=== PATIENT | male | born 1940 | race Caucasian/White ===

== ENCOUNTER 2017-06-05 15:03 | Inpatient (IN) | payer MEDICARE, BC ==
[~2017-06-05] VITALS: Ht 190.5 cm; Wt 103.9 kg
[~2017-06-05 15:03] MED LIST: ATEN50TA PO; CRAN200C PO; DONE5TAB34 PO; DORZ10DR EACHEYE; FOLI1TAB16 PO; GABA-532 PO; LATA2.5D7 EACHEYE; MEMA10TA PO; MONT10TA22 PO; RIVA1PAT3 TD; SERT100T PO; SIMV10TA6 PO; TRAZ-144 PO
--- NOTE | 2017-06-05 15:10 | NUR ---
PT BIB PA TO ER BED 12. PER REPORT, MORE ALTERED. ALSO NOTED SKIN RASH SURROUNDING PERINEAL AREA W/ FOUIL SMELL. GOWNED AND PLACED ON MONITOR. STABLE VITALS. AWAITING MD LATIF.
--- NOTE | 2017-06-05 15:19 | NUR ---
DR HARO AT BEDSIDE FOR EVAL.
--- NOTE | 2017-06-05 15:35 | NUR ---
IV LINE STARTED BLOOD DRAWN AND SENT TO LAB.
[2017-06-05 15:42] LABS: BASOPHILS # (AUTO) 0.1 /CMM (0.0-0.2); BASOPHILS % (AUTO) 1.5 % (0.0-2.0); EOSINOPHILS # (AUTO) 0.1 /CMM (0.0-0.7); EOSINOPHILS % (AUTO) 1.4 % (0.0-6.0); HEMATOCRIT 43 % (39-51); HEMOGLOBIN 14.5 g/dL (13.5-17.5); LYMPHOCYTES # (AUTO) 1.6 /CMM (0.8-4.8); LYMPHOCYTES % (AUTO) 18.3 % (20.0-44.0); MEAN CORPUSCULAR HEMOGLOBIN 30 PG (26.0-33.0); MEAN CORPUSCULAR HGB CONC 34 g/dl (31.0-36.0); MEAN CORPUSCULAR VOLUME 88 fL (80-96); MONOCYTES # (AUTO) 0.6 /CMM (0.1-1.30); NEUTROPHILS # (AUTO) 6.1 /CMM (1.8-8.9); NEUTROPHILS % (AUTO) 71.8 % (43.0-81.0); PLATELET COUNT (AUTO) 257 /CMM (150-450); RDW COEFFICIENT OF VARIATION 12.7 (11.5-15.0); RED BLOOD CELL COUNT(AUTO) 4.88 MIL/uL (4.5-6.0); WHITE BLOOD COUNT (AUTO) 8.5 K/uL (4.3-11.0)
[2017-06-05 15:52] LABS: CALCIUM, SERUM 9.4 mg/dL (8.5-10.1); CARBON DIOXIDE 30 mmol/L (21-32); CHLORIDE 102 mmol/L (98-107); CREATININE 0.7 mg/dL (0.6-1.3); GLUCOSE 107 mg/dL (74-106); POTASSIUM 4.2 mmol/L (3.5-5.1); SODIUM SERUM 138 mmol/L (136-145); UREA NITROGEN, BLOOD 16 mg/dL (7-18)
[2017-06-05 15:57] LABS: INR 0.9 (0.87-1.13); PROTHROMBIN TIME 9.4 SECS (9.5-12.7)
[2017-06-05 15:58] LABS: ALANINE AMINOTRANSFERASE 16 U/L (12-78); ALBUMIN 3.7 g/dL (3.4-5.0); ALKALINE PHOSPHATASE 58 U/L (46-116); ASPARTATE AMINOTRANSFERASE 14 U/L (15-37); BILIRUBIN,DIRECT 0.1 mg/dL (0.0-0.2); BILIRUBIN,TOTAL 0.6 mg/dL (0.2-1.0); TOTAL PROTEIN, SERUM 7.4 g/dL (6.4-8.2)
--- NOTE | 2017-06-05 15:59 | NUR ---
PT TO RADIOLOGY FOR HEAD CT SCAN VIA [facility].
[2017-06-05 16:00] LABS: TROPONIN I < 0.017 ng/mL (0.00-0.056)
[2017-06-05 16:37] LABS: APPEARANCE,URINE Clear (CLEAR); BILIRUBIN,URINE Negative (NEGATIVE); BLOOD, URINE Trace-intact Ery/uL (NEGATIVE); COLOR,URINE Yellow (YELLOW); KETONES,URINE Negative (NEGATIVE); LEUKOCYTE ESTERASE ,URINE Small (NEGATIVE); NITRITE, URINE Negative (NEGATIVE); PROTEIN,URINE Negative (NEGATIVE); UGLUCOSE Negative (NEGATIVE)
[2017-06-05 16:48] LABS: BACTERIA,URINE Moderate /HPF (None Seen); SQUAMOUS EPITHELIAL CELL,UR Moderate /HPF (None Seen)
[2017-06-05] MEDS ORDERED: VANCOMYCIN 1 GM in IV D5W 250 ML IV ONE (17:00)
[2017-06-05] MEDS ORDERED: PIPERACILLIN /TAZOBACTAM 3.375 G in IV D5W 50 ML IV ONE (17:00)
--- NOTE | 2017-06-05 17:06 | NUR ---
EPIC PAGED DR AGUILAR STEWARDESS SUPERVISOR
[2017-06-05] MEDS ORDERED: ACET-868 PO (17:11)
[2017-06-05] MEDS ORDERED: LOPE2CAP40 PO (17:11)
[2017-06-05] MEDS ORDERED: ALPR0.255 PO (17:11)
[2017-06-05] MEDS ORDERED: RANI150C4 PO (17:11)
[2017-06-05] MEDS ORDERED: METO50TA3 PO (17:11)
--- NOTE | 2017-06-05 17:20 | NUR ---
PAGED LORIE SUPP FOR MED SURG BED
[2017-06-05] MEDS ORDERED: ZOLPIDEM TARTRATE 5 MG TABLET PO PRN ×2 (17:30→18:45)
[2017-06-05] MEDS ORDERED: MAGNESIUM HYDROXIDE 30 ML UDC PO PRN ×2 (17:30→18:45)
[2017-06-05] MEDS ORDERED: MAG HYDROX/AL HYDROX/SIMETH 30 ML UDC PO PRN ×2 (17:30→18:45)
[2017-06-05] MEDS ORDERED: CEFTRIAXONE 1 G in IV D5W 50 ML IV SCH (17:30)
[2017-06-05] MEDS ORDERED: IV NS 0.9% 1,000 ML IV PRN (17:30)
[2017-06-05] MEDS ORDERED: ENOXAPARIN SODIUM 40 MG/0.4 ML DISP.SYRIN SQ SCH (17:30)
[2017-06-05] MEDS ORDERED: ALPRAZOLAM 0.25 MG TABLET PO PRN ×2 (17:30→18:45)
[2017-06-05] MEDS ORDERED: ONDANSETRON HCL/PF 4 MG/2 ML VIAL IVP PRN ×2 (17:30→18:45)
[2017-06-05] MEDS ORDERED: Z GUARD REMEDY 2 OZ OINT TP PRN ×2 (17:30→18:45)
[2017-06-05] MEDS ORDERED: HYDROCODONE/APAP 5/325MG 1 EACH TABLET PO PRN ×2 (17:30→18:45)
[2017-06-05] MEDS ORDERED: ACETAMINOPHEN 325 MG TABLET PO PRN ×4 (17:30→18:45)
--- NOTE | 2017-06-05 18:09 | NUR ---
REPORT TO ROLO. PT AWAITING TRANSFER TO FLOOR.
--- NOTE | 2017-06-05 18:50 | NUR ---
MS RN OPENING NOTE PATIENT BROUGHT UP FROM ER. ALL BELONGINGS AT BEDSIDE. PATIENT IS ALERT AND ORIENTED x1-2. NO PAIN AT THIS TIME. NO SOB OR DISTRESS NOTED. CALL LIGHT WITHIN REACH. SAFETY MEASURES IMPLEMENTED. ABLE TO COMMUNICATE NEEDS. IV ON RIGHT AC INTACT AND PATENT, VANCO RUNNING AT THIS TIME. ENDORSED PATIENT TO RNVINCENT.
[2017-06-05 20:00] VITALS: BP 141/79
--- NOTE | 2017-06-05 20:00 | NUR ---
MS RN NOTE: PATIENT RESTING IN BED, NO ACUTE DISTRESS NOTED. BREATHING EVEN AND UNLABORED, NO SOB NOTED. IV TO RAC IN PLACE. BED LOCKED AND IN LOWEST POSITION, CALL LIGHT IN REACH. WILL CONTINUE TO MONITOR.
--- NOTE | 2017-06-05 20:30 | NUR ---
MS RN NOTE: RECEIVED CALL FROM PATIENT'S PRINCE, PROVIDED PATIENT H&P AND CONTACT INFORMATION. PATIENT IS DPOA AND WOULD LIKE TO BE CONTACTED FOR ANY CHANGE IN CONDITION OR NEW PROCEDURES. PRINCE CELL NUMBER IS [phone].
[2017-06-05] MEDS ORDERED: SIMVASTATIN 10 MG TABLET PO SCH (22:00)
[2017-06-05] MEDS ORDERED: LATANOPROST EYE DROP 0.005% 2.5 ML BOTTLE EACHEYE SCH (22:00)
[2017-06-05] MEDS: LATANOPROST EYE DROP 0.005% 2.5 ML BOTTLE EACHEYE SCH (22:06)
[2017-06-05] MEDS: SIMVASTATIN 10 MG TABLET PO SCH (22:06)
[2017-06-05] MEDS: CEFTRIAXONE 1 G in IV D5W 50 ML IV SCH (22:07)
[2017-06-05] MEDS: ENOXAPARIN SODIUM 40 MG/0.4 ML DISP.SYRIN SQ SCH (22:08)
[2017-06-05] MEDS: IV NS 0.9% 1,000 ML IV PRN (22:08)
[2017-06-06] VITALS: BP 117/68
--- NOTE | 2017-06-06 00:05 | NUR ---
RESTRIKE HAMMER OPERATOR NOTE: PER PATIENT , PATIENT IS DNI AND WILL BRING IN ADVANCE DIRECTIVE. SPOKE TO CHANNEL OPENER MD, LUCERO BLAIR, INFORMED THAT PATIENT IS DNI, OK TO HAVE ORDER FOR DNI. ORDER NOTED AND CARRIED OUT Addendum: 06/06/17 at 0031 by VINCENT RIVERA RN TELE READING SR 75.
[2017-06-06 04:00] VITALS: BP 111/64
--- NOTE | 2017-06-06 06:00 | NUR ---
MS RN NOTE: PATIENT RESTING IN BED, NO ACUTE DISTRESS NOTED. BREATHING EVEN AND UNLABORED, NO SOB NOTED. IV TO RAC IN PLACE. BED LOCKED AND IN LOWEST POSITION, CALL LIGHT IN REACH. WILL ENDORSE TO DAY NURSE TO CONTINUE WITH PLAN OF CARE. Addendum: 06/06/17 at 0609 by VINCENT RIVERA RN ADOPTION SERVICES MANAGER NOTE: TELE READING SR WITH 1ST DEGREE AV BLOCK, HR 82
--- NOTE | 2017-06-06 07:15 | NUR ---
RN MS NOTES PATIENT ALERT AND ORIENTED X1, CONFUSED, NO S/SX OF PAIN OR DISCOMFORT AT THIS TIME, IVF INFUSING AND TOLERATING WELL, NO DISTRESS NOTED, SAFETY MEASURES IN PLACED, CALL LIGHT WITHIN REACH, WILL CONTINUE TO MONITOR.
[2017-06-06] MEDS ORDERED: SERTRALINE HCL 50 MG TABLET PO SCH (09:00)
[2017-06-06] MEDS ORDERED: GABAPENTIN 100 MG CAPSULE PO SCH (09:00)
[2017-06-06] MEDS ORDERED: RIVASTIGMINE TARTRATE 4.6 MG PATCH.TD24 TD SCH (09:00)
[2017-06-06] MEDS ORDERED: MEMANTINE HCL 5 MG TABLET PO SCH (09:00)
[2017-06-06] MEDS ORDERED: METOPROLOL TARTRATE 50 MG TABLET PO SCH (09:00)
[2017-06-06] MEDS ORDERED: DORZOLAMIDE OPTH 2% 10 ML BOTTLE EACHEYE SCH (09:00)
[2017-06-06] MEDS: MEMANTINE HCL 5 MG TABLET PO SCH ×2 (09:22→16:26)
[2017-06-06] MEDS: DORZOLAMIDE OPTH 2% 10 ML BOTTLE EACHEYE SCH ×3 (09:22→16:26)
[2017-06-06] MEDS: GABAPENTIN 100 MG CAPSULE PO SCH ×2 (09:22→16:26)
[2017-06-06] MEDS: SERTRALINE HCL 50 MG TABLET PO SCH (09:23)
[2017-06-06] MEDS: METOPROLOL TARTRATE 50 MG TABLET PO SCH (09:23)
--- NOTE | 2017-06-06 09:59 | NUR ---
WOUND CARE CONSULT: PT PRESENTS WITH RED RASH TO PERINEAL AND SCROTAL AREAS, PRESENT ON ADMISSION. RECOMMENDATIONS MADE FOR SKIN CARE AND PROTECTION. DISCUSSED WITH NURSING STAFF. RECOMMEND LOW AIRLOSS BED. ITZ ISOFLEX RODRIGUE BED TO BE PLACED. WILL SEE PRN. GAVIN IN AGREEMENT WITH PLAN OF CARE. Addendum: 06/06/17 at 1001 by PITO MARK WNDNU Amended: Links added.
[2017-06-06] MEDS: RIVASTIGMINE TARTRATE 4.6 MG PATCH.TD24 TD SCH (11:07)
[2017-06-06] MEDS: CLOTRIMAZOLE 1% 15 GM TUBE TP SCH ×2 (11:08→16:28)
--- NOTE | 2017-06-06 11:47 | NUR ---
BLOCK CHOPPER HAND NOTES SPOKE WITH PRINCE RE: ADVANCE DIRECTIVE AND DPOA PAPERWORK, PER PATIENT'S ADVANCE DIRECTIVE COPY WERE LOST, UNABLE TO PROVIDE COPY AT THIS TIME. INFORMED , HOSPITAL NEEDS A COPY OF ADVANCE DIRECTIVE RE: DNI WISHES, IF UNABLE TO PROVIDE, PATIENT WILL BE PLACED ON FULL CODE STATUS UNTIL A COPY IS PROVIDED. AND PER PIANO PROFESSOR, PATIENT HAS ALTERED MENTAL STATUS NOW AND CANNOT SIGN THE ADVANCE DIRECTIVE, THE PATIENT NEEDS TO TALK TO A DOCTOR AND SIGN POLST FORM FOR DNI WISHES. PATIENT'S VERBALIZED UNDERSTANDING AND AGREED. PER SHE WILL TRY TO FAX DPOA PAPERWORKS SOMETIME TODAY. THEREFORE, PATIENT WILL BE PLACED ON FULL CODE AT THIS TIME. DR. LAUREN ELIAS.
--- NOTE | 2017-06-06 12:10 | NUR ---
TOOL AND DIE MAKER APPRENTICE NOTES SPOKE WITH DR. AGUILAR, PER DR. AGUILAR VERBAL REQUEST IS ENOUGH, PLACED PATIENT BACK ON DNI. RECEIVED TELEPHONE ORDER FOR DNI. ORDER NOTED AND CARRIED OUT. MADE AWARE.
--- NOTE | 2017-06-06 12:21 | NUR ---
Social service consult requested by Dr. Albarado due to pt. residing at an assisted living [facility]. Pt. is a 76 year old male who was admitted to [facility] for encephalopathy and UTI. SW and porter sample case Blayne met with pt. bedside. Pt. is alert and oriented x 1. Pt. appears very confused. Pt. resides at [facility], an assisted living located at [address] [place] [address], in [place]. [place] . Pt. states he has been living at the assisted living for the past four months. Pt. is and his is Ludivina . Pt. has five children. Pt. will require a higher level of care like group home facility due to unable to care for himself independently. dairy manager Blayne is aware of possible SNF placement.
--- NOTE | 2017-06-06 18:45 | NUR ---
MEDIA RECONCILIATION SPECIALIST NOTES PATIENT ALERT AND ORIENTED X1, BREATHING EVEN AND UNLABORED NO DISTRESS NOTED, TREATMENT ON GROIN AND YESICA-AREA DONE, ALL NEEDS ATTENDED AND MET, PIV PATENT AND INTACT, FLUSHES WELL, CALL LIGHT WITHIN REACH, SAFETY MEASURES IN PLACED, WILL ENDORSE TO MACHINE OPERATIONS SUPERVISOR FOR LILA.
[2017-06-06 20:00] VITALS: BP 129/72
[2017-06-06] MEDS: ENOXAPARIN SODIUM 40 MG/0.4 ML DISP.SYRIN SQ SCH (21:37)
[2017-06-06] MEDS: CEFTRIAXONE 1 G in IV D5W 50 ML IV SCH (21:41)
[2017-06-06] MEDS: LATANOPROST EYE DROP 0.005% 2.5 ML BOTTLE EACHEYE SCH (21:41)
[2017-06-06] MEDS: SIMVASTATIN 10 MG TABLET PO SCH (21:41)
[2017-06-07] VITALS: BP 140/77
[2017-06-07 04:00] VITALS: BP 134/74
--- NOTE | 2017-06-07 06:16 | NUR ---
MS RN NOTES AWAKE & RESPONSIVE. NOT IN ANY DISTRESS. NO SOB NOTED. DENIES ANY PAIN OR DISCOMFORT AT THIS TIME. WITH IVF INFUSING WELL. AM CARE DONE. MONITORED ACCORDINGLY. CALL LIGHT WITHIN REACH. BED IN LOWEST POSITION. SR UP X 3 FOR SAFETY WITH BED ALARM ON. WILL ENDORSE TO NEXT SHIFT. Addendum: 06/07/17 at 0630 by ENID VARGAS RN ON TELE SR @ 61 WITH 1AVB
--- NOTE | 2017-06-07 07:42 | NUR ---
TELE/RN OPENING NOTE PATIENT RECEIVED IN BED IN STABLE CONDITION. A/O X 1 WITH EPISODES OF CONFUSION AND FORGETFULNESS. NO SIGNS OF ACUTE DISTRESS. NO COMPLAIN OF PAIN OR DISCOMFORT. ALL NEEDS ATTENDED TO. CALL LIGHT WITHIN REACH. WILL CONTINUE TO MONITOR TO ENSURE SAFETY.
[2017-06-07] MEDS: RIVASTIGMINE TARTRATE 4.6 MG PATCH.TD24 TD SCH (08:42)
[2017-06-07] MEDS: SERTRALINE HCL 50 MG TABLET PO SCH (08:43)
[2017-06-07] MEDS: GABAPENTIN 100 MG CAPSULE PO SCH ×2 (08:43→16:44)
[2017-06-07] MEDS: DORZOLAMIDE OPTH 2% 10 ML BOTTLE EACHEYE SCH ×3 (08:43→16:43)
[2017-06-07] MEDS: MEMANTINE HCL 5 MG TABLET PO SCH ×2 (08:44→16:43)
[2017-06-07] MEDS: METOPROLOL TARTRATE 50 MG TABLET PO SCH (08:44)
[2017-06-07] MEDS: CLOTRIMAZOLE 1% 15 GM TUBE TP SCH ×2 (08:45→16:43)
--- NOTE | 2017-06-07 11:49 | NUR ---
MS/RN SEEN BY DR AGUILAR SEEN BY DR AGUILAR WITH ORDERS OF FOLLOW UP LABS IN AM.
[2017-06-07] MEDS: IV NS 0.9% 1,000 ML IV PRN (12:16)
[2017-06-07 16:00] VITALS: BP 140/89
--- NOTE | 2017-06-07 18:30 | NUR ---
MS/RN CLOSING NOTE PATIENT IN BED IN STABLE CONDITION. A/O X 1 WITH EPISODES OF CONFUSION AND FORGETFULNESS. NO SIGNS OF ACUTE DISTRESS. NO COMPLAIN OF PAIN OR DISCOMFORT. ALL NEEDS ATTENDED TO. CALL LIGHT WITHIN REACH. WILL ENDORSE TO NEXT SHIFT FOR CONTINUITY OF CARE.
[2017-06-07 20:00] VITALS: BP 151/57
[2017-06-07] MEDS: ENOXAPARIN SODIUM 40 MG/0.4 ML DISP.SYRIN SQ SCH (20:41)
[2017-06-07] MEDS: CEFTRIAXONE 1 G in IV D5W 50 ML IV SCH (20:41)
[2017-06-07] MEDS: LATANOPROST EYE DROP 0.005% 2.5 ML BOTTLE EACHEYE SCH (21:58)
[2017-06-07] MEDS: SIMVASTATIN 10 MG TABLET PO SCH (21:59)
[2017-06-08] MEDS: IV NS 0.9% 1,000 ML IV PRN (02:14)
--- NOTE | 2017-06-08 06:22 | NUR ---
MS RN NOTES AWAKE & RESPONSIVE. NOT IN ANY DISTRESS. NO SOB NOTED. DENIES ANY PAIN OR DISCOMFORT AT THIS TIME. WITH IVF INFUSING WELL. AM CARE DONE. MONITORED ACCORDINGLY. CALL LIGHT WITHIN REACH. BED IN LOWEST POSITION. SR UP X 3 FOR SAFETY WITH BED ALARM ON. WILL ENDORSE TO NEXT SHIFT.
[2017-06-08 06:50] LABS: EOSINOPHILS # (AUTO) 0.1 /CMM (0.0-0.7); EOSINOPHILS % (AUTO) 1.8 % (0.0-6.0); HEMATOCRIT 40 % (39-51); HEMOGLOBIN 13.6 g/dL (13.5-17.5); LYMPHOCYTES # (AUTO) 1.5 /CMM (0.8-4.8); LYMPHOCYTES % (AUTO) 24.5 % (20.0-44.0); MEAN CORPUSCULAR HEMOGLOBIN 30 PG (26.0-33.0); MEAN CORPUSCULAR HGB CONC 34 g/dl (31.0-36.0); MEAN CORPUSCULAR VOLUME 88 fL (80-96); MONOCYTES # (AUTO) 0.4 /CMM (0.1-1.30); MONOCYTES % (AUTO) 6.6 % (2.0-12.0); NEUTROPHILS # (AUTO) 4.2 /CMM (1.8-8.9); NEUTROPHILS % (AUTO) 67.1 % (43.0-81.0); PLATELET COUNT (AUTO) 212 /CMM (150-450); RDW COEFFICIENT OF VARIATION 12.9 (11.5-15.0); RED BLOOD CELL COUNT(AUTO) 4.58 MIL/uL (4.5-6.0); WHITE BLOOD COUNT (AUTO) 6.3 K/uL (4.3-11.0)
[2017-06-08 06:57] LABS: CARBON DIOXIDE 23 mmol/L (21-32); CHLORIDE 101 mmol/L (98-107); CREATININE 0.6 mg/dL (0.6-1.3); GLUCOSE 91 mg/dL (74-106); POTASSIUM 3.3 mmol/L (3.5-5.1); SODIUM SERUM 134 mmol/L (136-145); UREA NITROGEN, BLOOD 13 mg/dL (7-18)
[2017-06-08 07:10] LABS: CALCIUM, SERUM 8.5 mg/dL (8.5-10.1)
[2017-06-08 08:00] VITALS: BP 153/83
--- NOTE | 2017-06-08 08:01 | NUR ---
RN OPENING NOTES RECEIVED PATIENT RESTING COMFORTABLY IN BED WITH EYES CLOSED. EASILY AROUSABLE. AOX1. FORGETFUL. DENIES ANY PAIN. DENIES CP AND SOB. IV ACCESS IN THE RIGHT HAND 20G PATENT AND INTACT WITH NS RUNNING @ 75 MLS/HR. RESPIRATIONS EVEN AND UNLABORED. NO ACUTE DISTRESS NOTED. BED LOCKED IN THE LOWEST POSITION WITH SIDERAILS UP X2. CALL LIGHT WITHIN REACH. WILL CONTINUE TO MONITOR, ASSESS AND EDUCATE PATIENT THROUGHOUT SHIFT.
[2017-06-08] MEDS: RIVASTIGMINE TARTRATE 4.6 MG PATCH.TD24 TD SCH (09:21)
[2017-06-08] MEDS: DORZOLAMIDE OPTH 2% 10 ML BOTTLE EACHEYE SCH ×2 (09:21→13:38)
[2017-06-08] MEDS: GABAPENTIN 100 MG CAPSULE PO SCH (09:22)
[2017-06-08] MEDS: METOPROLOL TARTRATE 50 MG TABLET PO SCH (09:22)
[2017-06-08] MEDS: SERTRALINE HCL 50 MG TABLET PO SCH (09:22)
[2017-06-08] MEDS: MEMANTINE HCL 5 MG TABLET PO SCH (09:22)
[2017-06-08] MEDS: CLOTRIMAZOLE 1% 15 GM TUBE TP SCH (09:23)
[2017-06-08] MEDS ORDERED: POTASSIUM CHLORIDE 20 MEQ TAB.PRT.SR PO SCH ×2 (10:30→14:00)
--- NOTE | 2017-06-08 13:44 | NUR ---
RN NON ADMIN NOTES K DUR DOSE GIVEN AT 1400. MISSED 1030 DOSE AND NOTIFIED PHARMACY.
[2017-06-08] MEDS ORDERED: CEPH-570 PO (13:50)
[2017-06-08 14:45] VITALS: BP 146/75
--- NOTE | 2017-06-08 14:47 | NUR ---
RN CLOSING NOTES PATIENT DISCHARGED IN STABLE CONDITION. REPORT GIVEN TO RUDDY AT [facility]. TO CONTINUE TO PRESCRIBED ABX. ALL DISCHARGE EDUCATION GIVEN. EXITCARE COMPLETED AND GIVEN TO PATIENT. FU PCP 1-2 WEEKS. VS WNL. NO ACUTYE DISTRESS. RESPIRATIONS EVEN AND UNLABORED.
== END 2017-06-08 14:50 | DRG 689 ==
LOC: ER 15:04 → MED 19:08 → TELE 23:28 → MED 06-07 12:21
DX: N39.0 Urinary tract infection, site not specified (principal); G93.40 Encephalopathy, unspecified; F03.90 Unspecified dementia, unspecified severity, without behavioral disturbance, psychotic disturbance, mood disturbance, and anxiety; G62.9 Polyneuropathy, unspecified; E78.5 Hyperlipidemia, unspecified; I25.10 Atherosclerotic heart disease of native coronary artery without angina pectoris; F32.9 Major depressive disorder, single episode, unspecified; K21.9 Gastro-esophageal reflux disease without esophagitis; K42.9 Umbilical hernia without obstruction or gangrene; Z91.041 Radiographic dye allergy status; Z96.652 Presence of left artificial knee joint; Z87.891 Personal history of nicotine dependence; Z79.899 Other long term (current) drug therapy; M19.90 Unspecified osteoarthritis, unspecified site; Z96.642 Presence of left artificial hip joint; Z82.49 Family history of ischemic heart disease and other diseases of the circulatory system; H40.9 Unspecified glaucoma; I67.2 Cerebral atherosclerosis
CPT/HCPCS: 36415; 70450-TC; 71010-TC; 73560-TC; 80048-TC; 80076-TC; 81000-TC; 83605-TC; 84484-TC; 85025-TC; 85730-TC; 87040-TC; 87081-TC; 87086-TC; A4606; J0696; J1650; J2543; J3370; J7030; J7060; Z7610

== ENCOUNTER 2017-06-27 13:14 | Inpatient (IN) | payer MEDICARE, BC ==
[~2017-06-27] VITALS: Ht 190.5 cm; Wt 84.4 kg
[~2017-06-27 13:14] MED LIST changes: +ACET-868 PO; +ALPR0.255 PO; -ATEN50TA PO; +CEPH-570 PO; -CRAN200C PO; -DONE5TAB34 PO; -FOLI1TAB16 PO; +LOPE2CAP40 PO; +METO50TA3 PO; -MONT10TA22 PO; +RANI150C4 PO; -TRAZ-144 PO
--- NOTE | 2017-06-27 14:00 | NUR ---
INDER FOR ALOC. CONFUSED. W/C.
[2017-06-27 14:32] LABS: BASOPHILS # (AUTO) 0.2 /CMM (0.0-0.2); BASOPHILS % (AUTO) 2.4 % (0.0-2.0); EOSINOPHILS # (AUTO) 0.1 /CMM (0.0-0.7); HEMATOCRIT 42 % (39-51); HEMOGLOBIN 14.2 g/dL (13.5-17.5); LYMPHOCYTES # (AUTO) 1.4 /CMM (0.8-4.8); LYMPHOCYTES % (AUTO) 17.4 % (20.0-44.0); MEAN CORPUSCULAR HEMOGLOBIN 29 PG (26.0-33.0); MEAN CORPUSCULAR HGB CONC 34 g/dl (31.0-36.0); MEAN CORPUSCULAR VOLUME 87 fL (80-96); MONOCYTES # (AUTO) 0.6 /CMM (0.1-1.30); MONOCYTES % (AUTO) 7.2 % (2.0-12.0); NEUTROPHILS # (AUTO) 5.7 /CMM (1.8-8.9); PLATELET COUNT (AUTO) 262 /CMM (150-450); RDW COEFFICIENT OF VARIATION 12.8 (11.5-15.0); RED BLOOD CELL COUNT(AUTO) 4.86 MIL/uL (4.5-6.0)
[2017-06-27 14:41] LABS: CALCIUM, SERUM 9.5 mg/dL (8.5-10.1); CARBON DIOXIDE 28 mmol/L (21-32); CHLORIDE 101 mmol/L (98-107); CREATININE 0.7 mg/dL (0.6-1.3); GLUCOSE 102 mg/dL (74-106); POTASSIUM 3.7 mmol/L (3.5-5.1); SODIUM SERUM 138 mmol/L (136-145); UREA NITROGEN, BLOOD 15 mg/dL (7-18)
[2017-06-27 14:50] LABS: ALANINE AMINOTRANSFERASE 17 U/L (12-78); ALBUMIN 3.8 g/dL (3.4-5.0); ALCOHOL, BLOOD < 3 mg/dL (0-0); ALKALINE PHOSPHATASE 57 U/L (46-116); ASPARTATE AMINOTRANSFERASE 19 U/L (15-37); BILIRUBIN,DIRECT 0.2 mg/dL (0.0-0.2); BILIRUBIN,TOTAL 0.9 mg/dL (0.2-1.0); TOTAL PROTEIN, SERUM 7.5 g/dL (6.4-8.2)
[2017-06-27 14:52] LABS: BILIRUBIN,URINE Negative (NEGATIVE); BLOOD, URINE Small Ery/uL (NEGATIVE); KETONES,URINE Negative (NEGATIVE); LEUKOCYTE ESTERASE ,URINE Negative (NEGATIVE); NITRITE, URINE Negative (NEGATIVE); PH,URINE 5.5 (5.0-8.0); PROTEIN,URINE Negative (NEGATIVE); UGLUCOSE Negative (NEGATIVE); UROBILINOGEN,URINE 0.2 EU/dL (0.2)
[2017-06-27 14:52] LABS: ACETAMINOPHEN 0 ug/ml (10-30); SALICYLATE 0.5 mg/dL (2.8-20.0)
[2017-06-27 14:53] LABS: COLOR,URINE Dark Yellow (YELLOW)
[2017-06-27 14:54] LABS: APPEARANCE,URINE Hazy (CLEAR)
--- NOTE | 2017-06-27 15:05 | NUR ---
CALLED REYES FOR EVPARDEEP
[2017-06-27 15:06] LABS: BACTERIA,URINE None seen /HPF (None Seen); MUCUS,URINE Few /LPF (None Seen); SQUAMOUS EPITHELIAL CELL,UR Few /HPF (None Seen)
[2017-06-27] MEDS ORDERED: DABI150C PO (15:37)
[2017-06-27] MEDS ORDERED: RISP0.5T20 PO (15:37)
[2017-06-27] MEDS ORDERED: MENT113O TOP (15:37)
[2017-06-27] MEDS ORDERED: FOLI1TAB16 PO (15:37)
[2017-06-27] MEDS ORDERED: TRAV5DRO EACHEYE (15:37)
--- NOTE | 2017-06-27 17:01 | NUR ---
REPORT GIVEN TO VIVIAN MELO FOR CONTINUITY OF CARE IN [facility]
[2017-06-27] MEDS ORDERED: MAGNESIUM HYDROXIDE 30 ML UDC PO PRN (17:30)
[2017-06-27] MEDS ORDERED: ACETAMINOPHEN 325 MG TABLET PO PRN ×2 (17:30→22:00)
[2017-06-27] MEDS ORDERED: MAG HYDROX/AL HYDROX/SIMETH 30 ML UDC PO PRN (17:30)
[2017-06-27] MEDS ORDERED: LORAZEPAM 0.5 MG TABLET PO PRN (17:30)
--- NOTE | 2017-06-27 18:11 | NUR ---
GPS RN ADMITTING NOTE: PT 76 Y/O MALE FROM SNF ADMITTED TO GPS ON 5150 HOLD FOR GD, PER HOLD PT HAS HX MAJOR DEPRESSIVE DISORDER ,OA ,HTN,CAD, GLAUCOMA DEMENTIA ,GERD, HYPERLIPIDEMIA PT CONFUSED AND DISORGANIZED THOUGHT.PT UNABLE TO FOLLOW SIMPLE COMMANDS NO SELF CARE PLAN. UPON FACE TO FACE EVALUATION PT A/O 1 CONFUSED , DISHEVELED AND UNKEPT,UNABLE TO CARE FOR SELF . PT SKIN CHECKED SEEN REDNESS ON GROIN AND BUTTOCK AREA ,SCABS ON BOTH FEET,WOUND CONSULT ORDER PICTURE PLACED IN THE CHART. ALL BELONGINGS CHECKED AND PLACED IN PT LOCKER. DR DORSEY NOTIFIED WITH STANDING ORDER,WILL CONTINUE MONITORING AND INDORSE TO INCOMING SHIFT NURSE FOR COMPLETION AND CONTINUATION OF CARE.
[2017-06-27] MEDS ORDERED: Z GUARD REMEDY 2 OZ OINT TP PRN (18:30)
[2017-06-27] MEDS: GABAPENTIN 100 MG CAPSULE PO SCH (20:21)
[2017-06-27 20:33] VITALS: BP 178/86
[2017-06-27] MEDS: risperiDONE 1 MG TABLET PO SCH (21:19)
[2017-06-27] MEDS ORDERED: DORZOLAMIDE OPTH 2% 10 ML BOTTLE EACHEYE SCH (22:00)
[2017-06-27] MEDS ORDERED: LOPERAMIDE HCL (2 MG CAP) 2 MG CAPSULE PO PRN (22:00)
[2017-06-27] MEDS ORDERED: LATANOPROST EYE DROP 0.005% 2.5 ML BOTTLE EACHEYE SCH (22:00)
[2017-06-27] MEDS ORDERED: GABAPENTIN 100 MG CAPSULE PO SCH (22:00)
[2017-06-27] MEDS: DABIGATRAN ETEXILATE MESYLATE 150 MG CAPSULE PO SCH (22:00)
[2017-06-27] MEDS ORDERED: FOLIC ACID 1 MG TABLET ONE (22:44)
[2017-06-27] MEDS ORDERED: SIMVASTATIN 10 MG TABLET ONE (22:44)
[2017-06-27] MEDS: FOLIC ACID 1 MG TABLET PO SCH (22:48)
[2017-06-27] MEDS: SIMVASTATIN 10 MG TABLET PO SCH (22:48)
[2017-06-27] MEDS ORDERED: DABIGATRAN ETEXILATE MESYLATE 75 MG CAPSULE PO ONE (22:56)
[2017-06-27 23:00] VITALS: BP 137/78
[2017-06-27] MEDS ORDERED: DABIGATRAN ETEXILATE MESYLATE 150 MG CAPSULE PO ONE (23:01)
--- NOTE | 2017-06-28 | NUR ---
GPS RN NOTES PT. REFUSED TO TAKE SLEEPING PILLS .
[2017-06-28 08:00] VITALS: BP 140/94
[2017-06-28] MEDS ORDERED: LATANOPROST EYE DROP 0.005% 2.5 ML BOTTLE EACHEYE SCH (08:13)
[2017-06-28 08:27] LABS: CHOLESTEROL 148 mg/dL (<200); HDL CHOLESTEROL 47 mg/dL (40-60); LDL 89 mg/dL (0-99); TRIGLYCERIDES 52 mg/dL (30-150)
[2017-06-28 08:33] LABS: ALANINE AMINOTRANSFERASE 17 U/L (12-78); ALBUMIN 3.4 g/dL (3.4-5.0); ALKALINE PHOSPHATASE 55 U/L (46-116); ASPARTATE AMINOTRANSFERASE 21 U/L (15-37); BILIRUBIN,TOTAL 0.9 mg/dL (0.2-1.0); CALCIUM, SERUM 9.3 mg/dL (8.5-10.1); CARBON DIOXIDE 27 mmol/L (21-32); CHLORIDE 103 mmol/L (98-107); CREATININE 0.6 mg/dL (0.6-1.3); GLUCOSE 96 mg/dL (74-106); POTASSIUM 3.2 mmol/L (3.5-5.1); SODIUM SERUM 141 mmol/L (136-145); UREA NITROGEN, BLOOD 13 mg/dL (7-18)
[2017-06-28] MEDS: SERTRALINE HCL 50 MG TABLET PO SCH (08:42)
[2017-06-28] MEDS: METOPROLOL TARTRATE 50 MG TABLET PO SCH (08:43)
[2017-06-28] MEDS: FOLIC ACID 1 MG TABLET PO SCH (08:44)
[2017-06-28] MEDS: GABAPENTIN 100 MG CAPSULE PO SCH ×2 (08:44→17:17)
[2017-06-28] MEDS: DABIGATRAN ETEXILATE MESYLATE 150 MG CAPSULE PO SCH ×2 (08:47→17:16)
[2017-06-28] MEDS: POTASSIUM CHLORIDE 20 MEQ TAB.PRT.SR PO SCH ×2 (11:29→12:00)
[2017-06-28] MEDS: DORZOLAMIDE OPTH 2% 10 ML BOTTLE EACHEYE SCH ×3 (12:25→17:18)
[2017-06-28] MEDS ORDERED: POTASSIUM CHLORIDE 20 MEQ TAB.PRT.SR PO SCH (14:00)
[2017-06-28] MEDS: VITAMINS A AND D 56.7 GM TUBE TP SCH (14:05)
[2017-06-28] MEDS: HYDROGEL DRESSING 90 GM TUBE TP SCH (14:05)
[2017-06-28 16:00] VITALS: BP 147/75
--- NOTE | 2017-06-28 16:27 | NUR ---
TFH-BS-IUAWC: DR. LUCERO BLAIR ORDERED BOOST BID, VITAMIN C DAILY, MULTIVITAMIN TAB DAILY, PER DEAN OF ADMISSIONS REQUEST.
[2017-06-28] MEDS ORDERED: CLOTRIMAZOLE/BETAMETASONE DIPROPIONATE 15 GM TUBE TP SCH (17:00)
[2017-06-28] MEDS: ASCORBIC ACID 500 MG TABLET PO SCH (17:17)
[2017-06-28] MEDS: MULTIVITAMINS,THERAGRAN 1 UDTAB TABLET PO SCH (17:17)
[2017-06-28] MEDS: BOOST PLUS FOOD-VANILLA 237 ML BOX PO SCH (17:23)
--- NOTE | 2017-06-28 19:15 | NUR ---
GPS RN NOTES CALLED PHARMACY CLOTRIMAZOLE CREAM , AWAITING FROM PHARMACY TO DELIVER.
[2017-06-28 20:00] VITALS: BP 146/85
[2017-06-28] MEDS: CLOTRIMAZOLE/BETAMETASONE DIPROPIONATE 15 GM TUBE TP SCH (20:25)
--- NOTE | 2017-06-28 20:25 | NUR ---
GPS RN NOTES PHARMACY DELIVERED LOTRAMIZOLE CREAM AND APPLY TO THE PATIENT .
[2017-06-28] MEDS: risperiDONE 1 MG TABLET PO SCH (21:25)
[2017-06-28] MEDS: SIMVASTATIN 10 MG TABLET PO SCH (21:25)
[2017-06-28] MEDS: LATANOPROST EYE DROP 0.005% 2.5 ML BOTTLE EACHEYE SCH (21:26)
[2017-06-29 08:22] VITALS: BP 156/84
[2017-06-29] MEDS: GABAPENTIN 100 MG CAPSULE PO SCH ×2 (09:00→16:13)
[2017-06-29] MEDS: MULTIVITAMINS,THERAGRAN 1 UDTAB TABLET PO SCH (09:00)
--- NOTE | 2017-06-29 09:00 | NUR ---
GPS/RN-NOTES DID WOUND TREATMENT ORDERED.
[2017-06-29] MEDS: ASCORBIC ACID 500 MG TABLET PO SCH (09:01)
[2017-06-29] MEDS: SERTRALINE HCL 50 MG TABLET PO SCH (09:01)
[2017-06-29] MEDS: FOLIC ACID 1 MG TABLET PO SCH (09:01)
[2017-06-29] MEDS: METOPROLOL TARTRATE 50 MG TABLET PO SCH (09:01)
[2017-06-29] MEDS: CLOTRIMAZOLE/BETAMETASONE DIPROPIONATE 15 GM TUBE TP SCH ×2 (09:02→16:18)
[2017-06-29] MEDS: DABIGATRAN ETEXILATE MESYLATE 150 MG CAPSULE PO SCH ×2 (09:02→16:16)
[2017-06-29] MEDS: DORZOLAMIDE OPTH 2% 10 ML BOTTLE EACHEYE SCH ×3 (09:04→16:17)
[2017-06-29] MEDS: BOOST PLUS FOOD-VANILLA 237 ML BOX PO SCH ×2 (09:05→16:16)
[2017-06-29] MEDS: HYDROGEL DRESSING 90 GM TUBE TP SCH (09:13)
[2017-06-29] MEDS: VITAMINS A AND D 56.7 GM TUBE TP SCH (09:13)
--- NOTE | 2017-06-29 13:33 | NUR ---
WOUND CARE CONSULT LATE ENTRY-PATIENT SEEN BY TRANSFER CAR OPERATOR 06/28/17 FOR SKIN ASSESSMENT. SEE TRANSFER CAR OPERATOR ASSESSMENT IN PCS FOR 06/28/17 ALONG WITH ALL RECOMMENDATIONS. PATIENT WITH CURRENT MONTSE AT 13. DISCUSSED TREATMENT PLANS WITH DNP AND DNP IN AGREEMENT. ALL SKIN MANAGEMENT DISCUSSED WITH NURSING AT THE BEDSIDE. CONTINUE ALL SKIN MANAGEMENT PER CURRENT PLAN OF CARE.
--- NOTE | 2017-06-29 15:01 | NUR ---
Initial Discharge Note: Patient resides at a facility [facility] at [address] [place] [address] / [phone]. LENNY called facility and spoke with [place], who confirmed that patient can return upon discharge.LENNY contacted pt's , Ludivina Millard at [phone] [please note that the number listed on patient's facesheet for Ludivina is wrong]. LENNY obtained correct number from facility. LENNY left a message with her contact information. LENNY will work to arrange a safe and proper discharge.
[2017-06-29] MEDS ORDERED: Z GUARD REMEDY 2 OZ OINT TP PRN (16:00)
[2017-06-29 16:13] VITALS: BP 142/84
--- NOTE | 2017-06-29 16:45 | NUR ---
GPS/RN-NOTES RECEIVED T.O ORDER FROM BARBARA BLAIR 0F POTASSIUM 40 MEQ P.O X1 FOR POTASSIUM LEVEL OF 3.2. NOTED AND CARRIED OUT.
[2017-06-29] MEDS ORDERED: POTASSIUM CHLORIDE 20 MEQ TAB.PRT.SR PO ONE (17:00)
[2017-06-29 20:00] VITALS: BP 137/79
[2017-06-29] MEDS: risperiDONE 1 MG TABLET PO SCH (22:08)
[2017-06-29] MEDS: LATANOPROST EYE DROP 0.005% 2.5 ML BOTTLE EACHEYE SCH (22:08)
[2017-06-29] MEDS: TEMAZEPAM 7.5 MG CAPSULE PO PRN (22:09)
[2017-06-29] MEDS: SIMVASTATIN 10 MG TABLET PO SCH (22:09)
[2017-06-30] MEDS: BOOST PLUS FOOD-VANILLA 237 ML BOX PO SCH ×2 (08:11→16:34)
[2017-06-30] MEDS: MULTIVITAMINS,THERAGRAN 1 UDTAB TABLET PO SCH (08:15)
[2017-06-30] MEDS: FOLIC ACID 1 MG TABLET PO SCH (08:15)
[2017-06-30] MEDS: SERTRALINE HCL 50 MG TABLET PO SCH (08:15)
[2017-06-30] MEDS: GABAPENTIN 100 MG CAPSULE PO SCH ×2 (08:15→16:34)
[2017-06-30] MEDS: METOPROLOL TARTRATE 50 MG TABLET PO SCH (08:15)
[2017-06-30] MEDS: ASCORBIC ACID 500 MG TABLET PO SCH (08:15)
[2017-06-30] MEDS: DORZOLAMIDE OPTH 2% 10 ML BOTTLE EACHEYE SCH ×3 (08:17→16:35)
[2017-06-30] MEDS: DABIGATRAN ETEXILATE MESYLATE 150 MG CAPSULE PO SCH ×2 (08:22→16:40)
[2017-06-30] MEDS: CLOTRIMAZOLE/BETAMETASONE DIPROPIONATE 15 GM TUBE TP SCH ×2 (08:23→16:36)
[2017-06-30] MEDS: VITAMINS A AND D 56.7 GM TUBE TP SCH (08:23)
[2017-06-30] MEDS: HYDROGEL DRESSING 90 GM TUBE TP SCH (08:23)
[2017-06-30 08:26] VITALS: BP 158/92
--- NOTE | 2017-06-30 09:30 | NUR ---
GPS/RN-NOTES DID WOUND TREATMENT ORDERED.
--- NOTE | 2017-06-30 11:12 | NUR ---
DR. DORSEY ORDERED TO CHANGE SERVICE TO DR. BRAND.
[2017-06-30 16:24] VITALS: BP 140/82
--- NOTE | 2017-06-30 17:56 | NUR ---
GPS/RN-NOTES PATIENT AWAKE,ALERT LAYING IN HIS BED CALM AND COOPERATIVE AT THIS TIME,NO ACUTE DISTRESS NOTED. ENDORSED TO INCOMING NURSE FOR CONTINUITY OF CARE.
[2017-06-30 20:00] VITALS: BP 143/77
[2017-06-30] MEDS: LATANOPROST EYE DROP 0.005% 2.5 ML BOTTLE EACHEYE SCH (21:21)
[2017-06-30] MEDS: TEMAZEPAM 7.5 MG CAPSULE PO PRN (21:21)
[2017-06-30] MEDS: SIMVASTATIN 10 MG TABLET PO SCH (21:21)
[2017-06-30] MEDS: risperiDONE 1 MG TABLET PO SCH (21:21)
[2017-07-01 08:00] VITALS: BP 152/88
[2017-07-01] MEDS: BOOST PLUS FOOD-VANILLA 237 ML BOX PO SCH ×2 (08:33→16:51)
[2017-07-01] MEDS: SERTRALINE HCL 50 MG TABLET PO SCH (08:49)
[2017-07-01] MEDS: GABAPENTIN 100 MG CAPSULE PO SCH ×2 (08:49→16:56)
[2017-07-01] MEDS: FOLIC ACID 1 MG TABLET PO SCH (08:49)
[2017-07-01] MEDS: MULTIVITAMINS,THERAGRAN 1 UDTAB TABLET PO SCH (08:49)
[2017-07-01] MEDS: ASCORBIC ACID 500 MG TABLET PO SCH (08:49)
[2017-07-01] MEDS: DORZOLAMIDE OPTH 2% 10 ML BOTTLE EACHEYE SCH ×3 (08:50→16:52)
[2017-07-01] MEDS: METOPROLOL TARTRATE 50 MG TABLET PO SCH (08:50)
[2017-07-01] MEDS: DABIGATRAN ETEXILATE MESYLATE 150 MG CAPSULE PO SCH ×2 (08:51→16:56)
[2017-07-01] MEDS: CLOTRIMAZOLE/BETAMETASONE DIPROPIONATE 15 GM TUBE TP SCH ×2 (08:56→17:03)
[2017-07-01] MEDS: VITAMINS A AND D 56.7 GM TUBE TP SCH (08:56)
[2017-07-01] MEDS: HYDROGEL DRESSING 90 GM TUBE TP SCH (08:56)
[2017-07-01 15:41] VITALS: BP 152/88
[2017-07-01 20:19] VITALS: BP 128/70
[2017-07-01] MEDS: risperiDONE 1 MG TABLET PO SCH (21:29)
[2017-07-01] MEDS: SIMVASTATIN 10 MG TABLET PO SCH (21:29)
[2017-07-01] MEDS: LATANOPROST EYE DROP 0.005% 2.5 ML BOTTLE EACHEYE SCH (21:33)
[2017-07-02] MEDS: GABAPENTIN 100 MG CAPSULE PO SCH ×2 (08:01→16:07)
[2017-07-02] MEDS: METOPROLOL TARTRATE 50 MG TABLET PO SCH (08:02)
[2017-07-02] MEDS: ASCORBIC ACID 500 MG TABLET PO SCH (08:02)
[2017-07-02] MEDS: SERTRALINE HCL 50 MG TABLET PO SCH (08:02)
[2017-07-02] MEDS: MULTIVITAMINS,THERAGRAN 1 UDTAB TABLET PO SCH (08:03)
[2017-07-02] MEDS: FOLIC ACID 1 MG TABLET PO SCH (08:04)
[2017-07-02] MEDS: DORZOLAMIDE OPTH 2% 10 ML BOTTLE EACHEYE SCH ×3 (08:05→16:01)
[2017-07-02] MEDS: CLOTRIMAZOLE/BETAMETASONE DIPROPIONATE 15 GM TUBE TP SCH ×2 (08:05→16:03)
[2017-07-02] MEDS: DABIGATRAN ETEXILATE MESYLATE 150 MG CAPSULE PO SCH ×2 (08:06→16:06)
[2017-07-02] MEDS: VITAMINS A AND D 56.7 GM TUBE TP SCH (08:13)
[2017-07-02] MEDS: HYDROGEL DRESSING 90 GM TUBE TP SCH (08:13)
[2017-07-02] MEDS: BOOST PLUS FOOD-VANILLA 237 ML BOX PO SCH ×2 (08:14→16:02)
[2017-07-02 08:15] VITALS: BP 150/82
--- NOTE | 2017-07-02 11:32 | NUR ---
Discharge Planning: LENNY got in touch with Ludivina Millard at [phone], patient's and POA. Ludivina stated that patient has been getting progressively wore over the past couple of months and she is unsure if it would be best for patient to return to his assisted living. Ludivina seemed uncertain of whether or not a custodial would be more beneficial for patient. LENNY stated that she will fax to a few facilities in order to have options. Ludivina stated it was fine to do so.
--- NOTE | 2017-07-02 11:35 | NUR ---
Discharge Planning: SW faxed an inquiry to [address] [address] / fax number [phone]. SW to follow up.
[2017-07-02 16:00] VITALS: BP 128/78
--- NOTE | 2017-07-02 19:30 | NUR ---
GPS RN NOTE, RECEIVED PATIENT AWAKE AND IN BED NO S/S OR COMPLAINTS OF PAIN AT THIS TIME. PATIENT IS DISPLAYING NO S/S OF APPARENT DISTRESS AT THIS TIME. PATIENT BREATHING IS UNLABORED WITH EQUAL RISE AND FALL OF THE CHEST. PATIENT IS ALERT AND ORIENTED X 2 ON ROOM AIR WITH A SPOO2 94 %. PATIENT IS MED COMPLIANT, UNPREDICTABLE AT TIMES, ANXIOUS AT TIMES, AGGRESSIVE AT TIMES, DISORGANIZED, AND NEEDS REORIENTATION. PATIENT DENIES SUICIDE IDEATIONS AND HOMICIDAL IDEATIONS AT THIS TIME. PATIENT ASSISTED WITH TURNING AND REPOSITIONING Q2HR AND PRN FOR COMFORT AND CIRCULATION. PATIENT HAS NO NEEDS AT THIS TIME. PATIENT EDUCATED ON THE USE OF THE CALL JOSE. PATIENT BED SIDE RAILS UP X 2 FOR SAFETY. PATIENT BED IS LOCKED AND LOW WILL CONTINUE TO MONITOR AND MAINTAIN SAFETY Q15 MIN WITH THE HELP OF STAFF.
[2017-07-02 19:57] VITALS: BP 120/73
[2017-07-02] MEDS: risperiDONE 1 MG TABLET PO SCH (22:15)
[2017-07-02] MEDS: SIMVASTATIN 10 MG TABLET PO SCH (22:15)
[2017-07-02] MEDS: LATANOPROST EYE DROP 0.005% 2.5 ML BOTTLE EACHEYE SCH (22:17)
[2017-07-03] MEDS: TEMAZEPAM 7.5 MG CAPSULE PO PRN (02:49)
--- NOTE | 2017-07-03 02:49 | NUR ---
GPS RN NOTE, PATIENT HAS A COMPLAINT OF NOT BEING ABLE TO SLEEP AND IS REQUESTING RESTORIL AT THIS TIME. PATIENT VITAL SIGNS ARE STABLE. GAVE RESTORIL 7.5MG PO HS ORDERED. WILL REASSESS FOR INSOMNIA AND I WILL CONTINUE TO MONITOR THIS PATIENT.
[2017-07-03] MEDS: GABAPENTIN 100 MG CAPSULE PO SCH ×2 (08:18→16:22)
[2017-07-03 08:19] VITALS: BP 144/86
[2017-07-03] MEDS: SERTRALINE HCL 50 MG TABLET PO SCH (08:19)
[2017-07-03] MEDS: ASCORBIC ACID 500 MG TABLET PO SCH (08:19)
[2017-07-03] MEDS: FOLIC ACID 1 MG TABLET PO SCH (08:19)
[2017-07-03] MEDS: MULTIVITAMINS,THERAGRAN 1 UDTAB TABLET PO SCH (08:19)
[2017-07-03] MEDS: METOPROLOL TARTRATE 50 MG TABLET PO SCH (08:19)
[2017-07-03] MEDS: DORZOLAMIDE OPTH 2% 10 ML BOTTLE EACHEYE SCH ×3 (08:20→16:32)
[2017-07-03] MEDS: DABIGATRAN ETEXILATE MESYLATE 150 MG CAPSULE PO SCH ×2 (08:27→16:28)
[2017-07-03] MEDS: risperiDONE 0.25 MG TABLET PO SCH (08:37)
[2017-07-03] MEDS: BOOST PLUS FOOD-VANILLA 237 ML BOX PO SCH ×2 (09:11→17:00)
[2017-07-03] MEDS: VITAMINS A AND D 56.7 GM TUBE TP SCH (09:13)
[2017-07-03] MEDS: HYDROGEL DRESSING 90 GM TUBE TP PRN (09:13)
[2017-07-03] MEDS: HYDROGEL DRESSING 90 GM TUBE TP SCH (09:16)
[2017-07-03] MEDS: CLOTRIMAZOLE/BETAMETASONE DIPROPIONATE 15 GM TUBE TP SCH ×2 (09:17→16:33)
--- NOTE | 2017-07-03 10:00 | NUR ---
GPS/UPTWISTER TENDER RENDERED ORDERED. TURNED AND REPOSITIONED Q 2 HOURS
[2017-07-03 16:17] VITALS: BP 148/88
[2017-07-03 19:37] VITALS: BP 154/85
[2017-07-03] MEDS: risperiDONE 1 MG TABLET PO SCH (21:11)
[2017-07-03] MEDS: SIMVASTATIN 10 MG TABLET PO SCH (21:11)
[2017-07-03] MEDS: LATANOPROST EYE DROP 0.005% 2.5 ML BOTTLE EACHEYE SCH (21:14)
[2017-07-04] MEDS: HYDROGEL DRESSING 90 GM TUBE TP PRN (05:53)
--- NOTE | 2017-07-04 05:54 | NUR ---
GPS/RN-NOTES PATIENT WOUND DRESSING CHANGE.
[2017-07-04 08:25] VITALS: BP 164/96
[2017-07-04] MEDS: BOOST PLUS FOOD-VANILLA 237 ML BOX PO SCH ×2 (08:46→17:39)
[2017-07-04] MEDS: METOPROLOL TARTRATE 50 MG TABLET PO SCH (08:47)
[2017-07-04] MEDS: DORZOLAMIDE OPTH 2% 10 ML BOTTLE EACHEYE SCH ×3 (08:47→17:38)
[2017-07-04] MEDS: FOLIC ACID 1 MG TABLET PO SCH (08:47)
[2017-07-04] MEDS: risperiDONE 0.25 MG TABLET PO SCH (08:47)
[2017-07-04] MEDS: ASCORBIC ACID 500 MG TABLET PO SCH (08:48)
[2017-07-04] MEDS: MULTIVITAMINS,THERAGRAN 1 UDTAB TABLET PO SCH (08:48)
[2017-07-04] MEDS: GABAPENTIN 100 MG CAPSULE PO SCH ×2 (08:48→17:40)
[2017-07-04] MEDS: SERTRALINE HCL 50 MG TABLET PO SCH (08:48)
[2017-07-04] MEDS: DABIGATRAN ETEXILATE MESYLATE 150 MG CAPSULE PO SCH ×2 (08:50→17:43)
[2017-07-04] MEDS: CLOTRIMAZOLE/BETAMETASONE DIPROPIONATE 15 GM TUBE TP SCH ×2 (08:59→17:40)
[2017-07-04] MEDS: VITAMINS A AND D 56.7 GM TUBE TP SCH (09:00)
[2017-07-04] MEDS: HYDROGEL DRESSING 90 GM TUBE TP SCH (09:00)
--- NOTE | 2017-07-04 10:17 | NUR ---
Discharge Planning: SW was informed by Felipe from [address] [address] / fax number [phone] that patient was accepted into the facility. SW to follow up with pt's DPOA / , Ludivina.
[2017-07-04 15:50] VITALS: BP 144/80
[2017-07-04 20:30] VITALS: BP 139/80
[2017-07-04] MEDS: SIMVASTATIN 10 MG TABLET PO SCH (22:08)
[2017-07-04] MEDS: LATANOPROST EYE DROP 0.005% 2.5 ML BOTTLE EACHEYE SCH (22:10)
[2017-07-04] MEDS: risperiDONE 1 MG TABLET PO SCH (22:16)
[2017-07-05 08:00] VITALS: BP 144/87
[2017-07-05] MEDS: SERTRALINE HCL 50 MG TABLET PO SCH (08:22)
[2017-07-05] MEDS: risperiDONE 0.25 MG TABLET PO SCH (08:22)
[2017-07-05] MEDS: FOLIC ACID 1 MG TABLET PO SCH (08:22)
[2017-07-05] MEDS: MULTIVITAMINS,THERAGRAN 1 UDTAB TABLET PO SCH (08:22)
[2017-07-05] MEDS: ASCORBIC ACID 500 MG TABLET PO SCH (08:22)
[2017-07-05] MEDS: DABIGATRAN ETEXILATE MESYLATE 150 MG CAPSULE PO SCH ×2 (08:23→17:04)
[2017-07-05] MEDS: METOPROLOL TARTRATE 50 MG TABLET PO SCH (08:23)
[2017-07-05] MEDS: CLOTRIMAZOLE/BETAMETASONE DIPROPIONATE 15 GM TUBE TP SCH ×2 (08:24→17:43)
[2017-07-05] MEDS: HYDROGEL DRESSING 90 GM TUBE TP SCH (08:24)
[2017-07-05] MEDS: VITAMINS A AND D 56.7 GM TUBE TP SCH (08:26)
[2017-07-05] MEDS: DORZOLAMIDE OPTH 2% 10 ML BOTTLE EACHEYE SCH ×3 (08:27→17:43)
[2017-07-05] MEDS: BOOST PLUS FOOD-VANILLA 237 ML BOX PO SCH ×2 (08:54→17:00)
[2017-07-05] MEDS: GABAPENTIN 100 MG CAPSULE PO SCH ×2 (09:10→17:01)
[2017-07-05 09:18] VITALS: BP 144/87
--- NOTE | 2017-07-05 11:21 | NUR ---
Discharge Planning: SW spoke with pt's / POA Ludivina Millard at [phone]. Ludivina stated that, due to patient have a stage 2 bed sore, perhaps it is better for him to go to [facility] instead of assisted living. SW followed up with ISAAK from [facility] and will await a response. SW to follow up with
[2017-07-05 15:59] VITALS: BP 146/88
[2017-07-05 20:00] VITALS: BP 131/77
[2017-07-05] MEDS: SIMVASTATIN 10 MG TABLET PO SCH (21:54)
[2017-07-05] MEDS: LATANOPROST EYE DROP 0.005% 2.5 ML BOTTLE EACHEYE SCH (21:54)
[2017-07-05] MEDS: TEMAZEPAM 7.5 MG CAPSULE PO PRN (21:54)
[2017-07-05] MEDS: risperiDONE 1 MG TABLET PO SCH (21:54)
[2017-07-06 08:00] VITALS: BP 147/89
[2017-07-06] MEDS: GABAPENTIN 100 MG CAPSULE PO SCH ×2 (08:52→16:57)
[2017-07-06] MEDS: BOOST PLUS FOOD-VANILLA 237 ML BOX PO SCH ×2 (08:52→16:58)
[2017-07-06] MEDS: ASCORBIC ACID 500 MG TABLET PO SCH (08:53)
[2017-07-06] MEDS: METOPROLOL TARTRATE 50 MG TABLET PO SCH (08:53)
[2017-07-06] MEDS: SERTRALINE HCL 50 MG TABLET PO SCH (08:53)
[2017-07-06] MEDS: risperiDONE 0.25 MG TABLET PO SCH (08:53)
[2017-07-06] MEDS: FOLIC ACID 1 MG TABLET PO SCH (08:53)
[2017-07-06] MEDS: MULTIVITAMINS,THERAGRAN 1 UDTAB TABLET PO SCH (08:53)
[2017-07-06] MEDS: DORZOLAMIDE OPTH 2% 10 ML BOTTLE EACHEYE SCH ×3 (08:54→16:57)
[2017-07-06] MEDS: DABIGATRAN ETEXILATE MESYLATE 150 MG CAPSULE PO SCH ×2 (09:12→16:57)
[2017-07-06] MEDS: HYDROGEL DRESSING 90 GM TUBE TP SCH (09:14)
[2017-07-06] MEDS: VITAMINS A AND D 56.7 GM TUBE TP SCH (11:02)
[2017-07-06] MEDS: CLOTRIMAZOLE/BETAMETASONE DIPROPIONATE 15 GM TUBE TP SCH ×2 (11:02→16:58)
--- NOTE | 2017-07-06 11:05 | NUR ---
Discharge Planning: LENNY faxed a clearance note for scabbies to Felipe from [address] [address] / fax number [phone].
--- NOTE | 2017-07-06 11:57 | NUR ---
Discharge Planning: SW left a voicemail for pt's / POA Ludivina Millard at [phone] regarding patient's discharge plan. SW provided direct contact information in voicemail message.
[2017-07-06 16:00] VITALS: BP 132/75
--- NOTE | 2017-07-06 16:39 | NUR ---
Discharge Planning: SW spoke with pt's / POA Ludivina Millard at [phone] who stated that she was in agreement with patient being transferred to [address] [address] / fax number [phone] on Sunday, July 09.
[2017-07-06 20:00] VITALS: BP 127/77
[2017-07-06] MEDS ORDERED: Z GUARD REMEDY 4 OZ OINT TP ONE (20:48)
[2017-07-06] MEDS: SIMVASTATIN 10 MG TABLET PO SCH (21:47)
[2017-07-06] MEDS: TEMAZEPAM 7.5 MG CAPSULE PO PRN (21:47)
[2017-07-06] MEDS: LATANOPROST EYE DROP 0.005% 2.5 ML BOTTLE EACHEYE SCH (21:47)
[2017-07-06] MEDS: risperiDONE 1 MG TABLET PO SCH (21:47)
[2017-07-07 08:00] VITALS: BP 140/79
[2017-07-07] MEDS: GABAPENTIN 100 MG CAPSULE PO SCH ×2 (08:11→16:04)
[2017-07-07] MEDS: DORZOLAMIDE OPTH 2% 10 ML BOTTLE EACHEYE SCH ×3 (08:11→16:03)
[2017-07-07] MEDS: ASCORBIC ACID 500 MG TABLET PO SCH (08:11)
[2017-07-07] MEDS: FOLIC ACID 1 MG TABLET PO SCH (08:11)
[2017-07-07] MEDS: BOOST PLUS FOOD-VANILLA 237 ML BOX PO SCH ×2 (08:11→16:00)
[2017-07-07] MEDS: SERTRALINE HCL 50 MG TABLET PO SCH (08:12)
[2017-07-07] MEDS: risperiDONE 0.25 MG TABLET PO SCH (08:12)
[2017-07-07] MEDS: MULTIVITAMINS,THERAGRAN 1 UDTAB TABLET PO SCH (08:12)
[2017-07-07] MEDS: METOPROLOL TARTRATE 50 MG TABLET PO SCH (08:17)
[2017-07-07] MEDS: VITAMINS A AND D 56.7 GM TUBE TP SCH (08:18)
[2017-07-07] MEDS: HYDROGEL DRESSING 90 GM TUBE TP SCH (08:18)
[2017-07-07] MEDS: CLOTRIMAZOLE/BETAMETASONE DIPROPIONATE 15 GM TUBE TP SCH ×2 (08:18→16:05)
[2017-07-07] MEDS: DABIGATRAN ETEXILATE MESYLATE 150 MG CAPSULE PO SCH ×2 (08:20→16:02)
[2017-07-07 15:35] VITALS: BP 115/57
[2017-07-07 20:00] VITALS: BP 112/65
[2017-07-07] MEDS: SIMVASTATIN 10 MG TABLET PO SCH (21:27)
[2017-07-07] MEDS: risperiDONE 1 MG TABLET PO SCH (21:28)
[2017-07-07] MEDS: LATANOPROST EYE DROP 0.005% 2.5 ML BOTTLE EACHEYE SCH (21:29)
[2017-07-08 08:15] VITALS: BP 135/81
[2017-07-08] MEDS: CLOTRIMAZOLE/BETAMETASONE DIPROPIONATE 15 GM TUBE TP SCH ×2 (09:34→17:32)
[2017-07-08] MEDS: VITAMINS A AND D 56.7 GM TUBE TP SCH (09:34)
[2017-07-08] MEDS: LATANOPROST EYE DROP 0.005% 2.5 ML BOTTLE EACHEYE SCH ×2 (09:34→21:56)
[2017-07-08] MEDS: HYDROGEL DRESSING 90 GM TUBE TP SCH (09:34)
[2017-07-08] MEDS: BOOST PLUS FOOD-VANILLA 237 ML BOX PO SCH ×2 (09:38→17:31)
[2017-07-08] MEDS: DORZOLAMIDE OPTH 2% 10 ML BOTTLE EACHEYE SCH ×3 (09:39→17:31)
[2017-07-08] MEDS: GABAPENTIN 100 MG CAPSULE PO SCH ×2 (09:43→17:33)
[2017-07-08] MEDS: MULTIVITAMINS,THERAGRAN 1 UDTAB TABLET PO SCH (09:43)
[2017-07-08] MEDS: FOLIC ACID 1 MG TABLET PO SCH (09:43)
[2017-07-08] MEDS: risperiDONE 0.25 MG TABLET PO SCH (09:43)
[2017-07-08] MEDS: ASCORBIC ACID 500 MG TABLET PO SCH (09:44)
[2017-07-08] MEDS: SERTRALINE HCL 50 MG TABLET PO SCH (09:44)
[2017-07-08] MEDS: METOPROLOL TARTRATE 50 MG TABLET PO SCH (09:44)
[2017-07-08] MEDS: DABIGATRAN ETEXILATE MESYLATE 150 MG CAPSULE PO SCH ×2 (09:47→17:35)
[2017-07-08 15:56] VITALS: BP 130/74
--- NOTE | 2017-07-08 19:30 | NUR ---
GPS RN NOTE, RECEIVED PATIENT AWAKE AND IN BED NO S/S OR COMPLAINTS OF PAIN AT THIS TIME. PATIENT IS DISPLAYING NO S/S OF APPARENT DISTRESS AT THIS TIME. PATIENT BREATHING IS UNLABORED WITH EQUAL RISE AND FALL OF THE CHEST. PATIENT IS ALERT AND ORIENTED X 2 ON ROOM AIR WITH A SPOO2 95 %. PATIENT IS MED COMPLIANT, CONFUSED, UNPREDICTABLE AT TIMES, ANXIOUS AT TIMES, COOPERATIVE, DISORGANIZED, AND NEEDS REORIENTATION. PATIENT DENIES SUICIDE IDEATIONS AND HOMICIDAL IDEATIONS AT THIS TIME. PATIENT ASSISTED WITH TURNING AND REPOSITIONING Q2HR AND PRN FOR COMFORT AND CIRCULATION. PATIENT HAS NO NEEDS AT THIS TIME. PATIENT EDUCATED ON THE USE OF THE CALL JOSE. PATIENT BED SIDE RAILS UP X 2 FOR SAFETY. PATIENT BED IS LOCKED AND LOW WILL CONTINUE TO MONITOR AND MAINTAIN SAFETY Q15 MIN WITH THE HELP OF STAFF.
[2017-07-08 20:07] VITALS: BP 135/77
[2017-07-08] MEDS: SIMVASTATIN 10 MG TABLET PO SCH (21:56)
[2017-07-08] MEDS: risperiDONE 1 MG TABLET PO SCH (21:56)
[2017-07-09 06:20] LABS: BASOPHILS % (AUTO) 0.6 % (0.0-2.0); EOSINOPHILS # (AUTO) 0.1 /CMM (0.0-0.7); EOSINOPHILS % (AUTO) 0.9 % (0.0-6.0); HEMATOCRIT 42 % (39-51); HEMOGLOBIN 14.2 g/dL (13.5-17.5); LYMPHOCYTES # (AUTO) 1.5 /CMM (0.8-4.8); LYMPHOCYTES % (AUTO) 19.9 % (20.0-44.0); MEAN CORPUSCULAR HEMOGLOBIN 29 PG (26.0-33.0); MEAN CORPUSCULAR HGB CONC 33 g/dl (31.0-36.0); MEAN CORPUSCULAR VOLUME 88 fL (80-96); MONOCYTES # (AUTO) 0.6 /CMM (0.1-1.30); NEUTROPHILS # (AUTO) 5.2 /CMM (1.8-8.9); NEUTROPHILS % (AUTO) 70.6 % (43.0-81.0); PLATELET COUNT (AUTO) 282 /CMM (150-450); RDW COEFFICIENT OF VARIATION 13.5 (11.5-15.0); RED BLOOD CELL COUNT(AUTO) 4.83 MIL/uL (4.5-6.0); WHITE BLOOD COUNT (AUTO) 7.3 K/uL (4.3-11.0)
[2017-07-09 06:45] LABS: CALCIUM, SERUM 9.1 mg/dL (8.5-10.1); CARBON DIOXIDE 29 mmol/L (21-32); CHLORIDE 99 mmol/L (98-107); CREATININE 0.5 mg/dL (0.6-1.3); GLUCOSE 97 mg/dL (74-106); PHOSPHORUS 3.5 mg/dL (2.5-4.9); POTASSIUM 4.2 mmol/L (3.5-5.1); SODIUM SERUM 135 mmol/L (136-145); UREA NITROGEN, BLOOD 12 mg/dL (7-18)
[2017-07-09 08:00] VITALS: BP 141/83
[2017-07-09] MEDS: BOOST PLUS FOOD-VANILLA 237 ML BOX PO SCH (08:00)
[2017-07-09] MEDS: SERTRALINE HCL 50 MG TABLET PO SCH (08:37)
[2017-07-09] MEDS: risperiDONE 0.25 MG TABLET PO SCH (08:37)
[2017-07-09] MEDS: GABAPENTIN 100 MG CAPSULE PO SCH (08:37)
[2017-07-09] MEDS: ASCORBIC ACID 500 MG TABLET PO SCH (08:37)
[2017-07-09] MEDS: MULTIVITAMINS,THERAGRAN 1 UDTAB TABLET PO SCH (08:37)
[2017-07-09 08:38] VITALS: BP 141/83
[2017-07-09] MEDS: METOPROLOL TARTRATE 50 MG TABLET PO SCH (08:38)
[2017-07-09] MEDS: FOLIC ACID 1 MG TABLET PO SCH (08:38)
[2017-07-09] MEDS: HYDROGEL DRESSING 90 GM TUBE TP SCH (08:39)
[2017-07-09] MEDS: DORZOLAMIDE OPTH 2% 10 ML BOTTLE EACHEYE SCH (08:39)
[2017-07-09] MEDS: VITAMINS A AND D 56.7 GM TUBE TP SCH (08:39)
[2017-07-09] MEDS: DABIGATRAN ETEXILATE MESYLATE 150 MG CAPSULE PO SCH (08:40)
--- NOTE | 2017-07-09 09:58 | NUR ---
Discharge Planning: As requested by electronic funds transfer coordinator LENNY MULLIGAN faxed [place] [address] [place] [address] / fax number [phone]
--- NOTE | 2017-07-09 10:07 | NUR ---
Family Update: LENNY spoke with pt's / POA Ludivina Millard at [phone] and confirmed that patient will be leaving today at 11am to [facility]. Ludivina stated that she was fine with that and thanked LENNY for all her help.
--- NOTE | 2017-07-09 10:26 | NUR ---
Discharge Note: Patient will be discharged to [facility] [address] [place] [address] / fax number [phone] via ambulance transportation arranged by social media strategist through [employer], trip #[id number]. Patients / POA Ludivina Millard [phone], is aware of the discharge and approves of the discharge plan. CJ from the facility, , was informed of the discharge planned for today and the facility is able to accommodate the patient. Upon discharge, patient denied suicidal and homicidal ideation. Patient will be seen by his psychiatrist, Dr. Cowan [address] [place] [address] [phone] at the facility within the week. Patient will also be seen by his marine structural designer, Dr. Corrigan [address] [address] [phone] at the facility. Patient is not a smoker and does not abuse drugs or alcohol.
--- NOTE | 2017-07-09 11:30 | NUR ---
GPS/RN PATIENT CLEARED FOR DISCHARGE TO [facility] BY DR DORSEY AND LAUREN RAMIREZ. MEDICATIONS RECONCILED BY BOTH DR'S, AND MED RECON FAXED TO ANGEL LUIS AT FACILITY . ALL D/C PAPER WORK COMPLETED, BELONGINGS RETURNED, PATIENT REFUSED TO SIGN D/C PAPER WORK, COSIGNED BY 2 RN. D/C PACKET, AFTERCARE PLAN AND MEDICATIONS EXPLAINED TO PATIENT, VERBALIZED UNDERSTANDING. PATIENT DENIES SI/HI/AH UPON DISCHARGE, PSYCHIATRIC TREATMENT PLANS MET. REPORT CALLED TO FACILITY, SPOKE WITH ANGEL LUIS. D/C PHOTOS TAKEN BY PREVIOUS SHIFT ON 07/08/17 AND PLACED IN CHART. SACRAL WOUND STAGE 2, HEALING STAGES, WOUND CLOSED, REPORTED TO FACILITY TO CONTINUE TO RENDER WOUND CARE ORDERED AND TURN AND REPOSITION Q 2 HOURS. PATIENT LEFT UNIT CALM, COOPERATIVE, NO DISTRESS NOTED WITH TRANSPORT AT SIDE.
== END 2017-07-09 11:45 | DRG 885 ==
LOC: ER 13:15 → GPS 16:32
PROVIDERS: ADMIT Psychiatry & Neurology Psychosomatic Medicine; ATTEND Psychiatry & Neurology Psychosomatic Medicine
DX: F29 Unspecified psychosis not due to a substance or known physiological condition (principal); G93.49 Other encephalopathy; R53.2 Functional quadriplegia; F03.91 Unspecified dementia, unspecified severity, with behavioral disturbance; G62.9 Polyneuropathy, unspecified; N39.0 Urinary tract infection, site not specified; E78.5 Hyperlipidemia, unspecified; F32.9 Major depressive disorder, single episode, unspecified; I25.10 Atherosclerotic heart disease of native coronary artery without angina pectoris; H40.9 Unspecified glaucoma; K21.9 Gastro-esophageal reflux disease without esophagitis; M19.90 Unspecified osteoarthritis, unspecified site; Z96.652 Presence of left artificial knee joint; Z87.891 Personal history of nicotine dependence; Z79.899 Other long term (current) drug therapy; Z79.01 Long term (current) use of anticoagulants; Z96.642 Presence of left artificial hip joint; Z91.041 Radiographic dye allergy status; I10 Essential (primary) hypertension
CPT/HCPCS: 36415; 80048-TC; 80053-TC; 80061-TC; 80076-TC; 80305; 81000-TC; 83735-TC; 84100-TC; 85025-TC; 87081-TC; A4606; A6248; A6402; G0480; Z7610